=== PATIENT | female | born 1975 | race Hispanic/Latino ===

== ENCOUNTER 2020-06-28 08:00 | Inpatient (IN) | payer BC ==
[2020-06-24 10:32] LABS: BASOPHILS % 0.3 % (0.0-1.0); EOSINOPHILS # (AUTO) 0.3 (0.0-0.4); EOSINOPHILS % 2.9 % (0.0-6.0); HEMATOCRIT 31.9 % (34.2-44.1); HEMOGLOBIN 9.4 g/dL (12.0-16.0); LYMPHOCYTES % 22.7 % (18.0-39.1); MEAN CORPUSCULAR HGB CONC 29.5 g/dL (31-35); MONOCYTES # (AUTO) 0.9 (0.2-0.8); MONOCYTES % 9.8 % (4.4-11.3); NEUTROPHILS # (AUTO) 5.7 (2.1-6.9); NEUTROPHILS % 63.9 % (38.7-80.0); PLATELET COUNT 321 x10e3/uL (140-360); RED BLOOD COUNT 4.09 x10e6/uL (3.6-5.1); RED CELL DISTRIBUTION WIDTH 16.8 % (11.7-14.4)
[2020-06-24 12:48] LABS: HYPOCHROMASIA MODERATE; RBC MORPHOLOGY COMMENT NORMAL
[2020-06-24 12:49] LABS: PLATELET ESTIMATE ADEQUATE; PLATELET MORPHOLOGY COMMENT NORMAL
[~2020-06-28 08:00] MED LIST: LIDOCAINE HCL (LTA) 4 ML SOLN ONE; MULTI-VITAMIN1 EACH PO; SCOPOLAMINE 1.5 MG PATCH ONE; VITAMIN B122500 MCG PO
[2020-06-28] MEDS ORDERED: CEFAZOLIN SOD 1 GM/NS 50ML 100 ML IV ONE (08:37)
[2020-06-28] MEDS ORDERED: BUPIVACAINE 0.25% 30ML SDV ONE (09:06)
[2020-06-28] MEDS ORDERED: SUGAMMADEX SODIUM 200 MG/2 ML VIAL IV ONE (10:00)
[2020-06-28] MEDS ORDERED: ONDANSETRON HCL INJ 2MG/ML 2ML 2 MG/ML VIAL ONE ×2 (10:51→13:19)
[2020-06-28] MEDS ORDERED: FENTANYL CITRATE/PF 100MCG/2 ML INJ ONE (10:52)
[2020-06-28 12:20] VITALS: BP 102/62
[2020-06-28] MEDS ORDERED: SCOPOLAMINE 1.5 MG PATCH TOP SCH (13:15)
[2020-06-28] MEDS ORDERED: ONDANSETRON HCL INJ 2MG/ML 2ML 2 MG/ML VIAL IV PRN (13:15)
[2020-06-28] MEDS ORDERED: LIDOCAINE HCL 2% LOCAL INJ 5 ML SDV VIAL INJ ONE (13:19)
[2020-06-28] MEDS ORDERED: ROCURONIUM BROMIDE 10 MG/ML 5ML VIAL IV ONE (13:19)
[2020-06-28] MEDS ORDERED: DEXAMETHASONE SOD PHOS INJ 4 MG/ML VIAL ONE (13:19)
[2020-06-28] MEDS ORDERED: GLYCOPYRROLATE INJ 0.2 MG/ML VIAL ONE (13:19)
[2020-06-28] MEDS ORDERED: LIDOCAINE HCL 2% JELLY 5 ML TUBE ONE (13:19)
[2020-06-28] MEDS ORDERED: PROPOFOL IV EMULSION 10 MG/ML 20 ML VIAL ONE (13:19)
[2020-06-28] MEDS ORDERED: SEVOFLURANE INHAL SOLN 250 ML PEN BTL ONE (13:19)
[2020-06-28] MEDS ORDERED: NEOSTIGMINE 1 MG/ML 10ML VIAL ONE (13:19)
[2020-06-28] MEDS: MORPHINE SULFATE 2 MG/ML SYR 1ML IV PRN ×3 (14:00→20:38)
[2020-06-28] MEDS: LACTATED RINGER'S 1,000 ML INJ SCH ×2 (14:00→20:30)
[2020-06-28 16:30] VITALS: BP 116/69
[2020-06-28] MEDS: FAMOTIDINE 20 MG/2 ML VIAL IV SCH (16:41)
[2020-06-28 19:49] VITALS: BP 118/66
[2020-06-28] MEDS: ENOXAPARIN SOD INJ 40 MG/0.4 ML SYR SC SCH (20:30)
[2020-06-28 21:00] VITALS: BP 118/66
[2020-06-29] VITALS (7 sets, daily range): BP systolic 101–126; BP diastolic 55–76
[2020-06-29] MEDS: MORPHINE SULFATE 2 MG/ML SYR 1ML IV PRN (04:33)
[2020-06-29 05:13] LABS: BASOPHILS % 0.2 % (0.0-1.0); EOSINOPHILS % 0.1 % (0.0-6.0); HEMATOCRIT 30.1 % (34.2-44.1); LYMPHOCYTES # (AUTO) 1.5 (1.0-3.2); LYMPHOCYTES % 11.5 % (18.0-39.1); MEAN CORPUSCULAR HEMOGLOBIN 23.2 pg (28-32); MEAN CORPUSCULAR HGB CONC 29.9 g/dL (31-35); MEAN CORPUSCULAR VOLUME 77.6 fL (81-99); MONOCYTES % 7.9 % (4.4-11.3); NEUTROPHILS # (AUTO) 10.2 (2.1-6.9); NEUTROPHILS % 79.8 % (38.7-80.0); PLATELET COUNT 326 x10e3/uL (140-360); RED BLOOD COUNT 3.88 x10e6/uL (3.6-5.1); RED CELL DISTRIBUTION WIDTH 17.2 % (11.7-14.4)
[2020-06-29] MEDS: LACTATED RINGER'S 1,000 ML INJ SCH ×2 (05:17→13:29)
[2020-06-29 05:48] LABS: ANION GAP 15.9 mmol/L (8-16); BLOOD UREA NITROGEN 11 mg/dL (7-26); BUN/CREATININE RATIO 16 (6-25); CALCIUM 8.4 mg/dL (8.4-10.2); CARBON DIOXIDE 17 mmol/L (22-29); CHLORIDE 105 mmol/L (98-107); CREATININE, SERUM 0.67 mg/dL (0.57-1.11); EST GLOMERULAR FILTRATION RATE > 60 ML/MIN (60-); GLUCOSE 76 mg/dL (74-118); MAGNESIUM 1.7 MG/DL (1.3-2.1); PHOSPHORUS 2.5 MG/DL (2.3-4.7); POTASSIUM 3.9 mmol/L (3.5-5.1); SODIUM 134 mmol/L (136-145)
[2020-06-29 06:04] LABS: % IRON SATURATION 4 % (15-50); IRON 17 ug/dL (50-170); TOTAL IRON BINDING CAPACITY 420 ug/dL (261-478); TRANSFERRIN 300 mg/dL (180-382)
[2020-06-29] MEDS: FAMOTIDINE 20 MG/2 ML VIAL IV SCH ×2 (08:42→16:27)
[2020-06-29] MEDS: ENOXAPARIN SOD INJ 40 MG/0.4 ML SYR SC SCH (08:42)
[2020-06-29] MEDS: HYDROCODONE/APAP 7.5MG-325MG 1 EA TAB PO PRN ×2 (08:43→15:23)
[2020-06-29] MEDS ORDERED: TYLENOL # 31 EA PO (14:22)
[2020-06-29] MEDS ORDERED: ZOFRAN4 MG PO (14:23)
[2020-06-29] MEDS ORDERED: IRON SUCROSE 100 MG in SODIUM CHLORIDE 0.9% 100 ML 100 ML IV ONE (15:00)
[2020-06-29] MEDS ORDERED: ONDANSETRON HCL 4 MG ORAL DISINTEGRATING TAB PO PRN (16:00)
== END 2020-06-29 16:59 | disposition home or self-care (01) | DRG 621 ==
LOC: OR 08:00 → PACU V 10:51 → IMCU 12:58
PROVIDERS: ADMIT Internal Medicine; ATTEND Internal Medicine
PROC: 0DB64Z3 Excision of Stomach, Percutaneous Endoscopic Approach, Vertical (ICD-10-PCS; principal; 2020-06-28 10:00)
DX: E66.01 Morbid (severe) obesity due to excess calories (principal); K31.7 Polyp of stomach and duodenum; Z68.41 Body mass index [BMI] 40.0-44.9, adult; D50.9 Iron deficiency anemia, unspecified; Z20.828 Contact with and (suspected) exposure to other viral communicable diseases
CPT/HCPCS: 36415; 80048; 81025; 83540; 83735; 84100; 84466; 85025; 88307; 88342; 96372; 96376; J0690; J1100; J1650; J1756; J2001; J2270; J2405; J2710; J3010; J7121; U0002